=== PATIENT | female | born 1955 | race Caucasian/White ===

== ENCOUNTER → 2018-08-07 05:53 | Day surgery (SDC) | payer BC ==
[~2018-08-07 05:53] MED LIST: Acetaminophen TAB* 325 MG PO PRN; Buffered Lidocaine 1% SYRIN* 1 ML/SYRINGE INTRADERM ONE; Bupivacaine 0.5%* 50 ML VIAL ONE; DiMENhydriNATE IV* 50 MG/ML VIAL IV PUSH PRN; Famotidine IV* 10 MG/ML 2 ML (20 mg) IV ONE; Famotidine IV* 10 MG/ML 2 ML (20 mg) ONE; Ketorolac INJ* 30 MG/ML 1 ML VIAL IV PRN; Ketorolac INJ* 30 MG/ML 1 ML VIAL ONE; Lactated Ringers 1000 ML Bag* 1,000 ML IV SCH; Lidocaine 2% PF * 5 ML VIAL ONE; Lidocaine 2% PF* 10 ML AMP ONE; Midazolam* 1 MG/ML 2 ML VIAL (2 MG) ONE; Naloxone* 0.4 MG/ML 1 ML VIAL IV PRN; Ondansetron INJ* 2 MG/ML VIAL ONE; Propofol* 10 MG/ML 20 ML BTL ONE; ceFAZolin 2 GM PREMIX in ORs 2 GM/50 ML BAG IVPB ONE; fentaNYL* 50 MCG/ML 2 ML VIAL (100 MCG VIAL) ONE; oxyCODONE/Acetamin 5/325 MG* TAB ONE; oxyCODONE/Acetamin 5/325 MG* TAB PO PRN
[2018-08-07] MEDS: fentaNYL* 50 MCG/ML 2 ML VIAL (100 MCG VIAL) IV PRN ×2 (09:46→10:03)
[2018-08-07 12:02] VITALS: BP 143/85
--- NOTE | 2018-08-07 14:06 | OP ---
DATE OF OPERATION: 08/07/18 - SDS DATE OF : 53 ATTENDING SURGEON: Dr. Hans Lynn. CHARGER OPERATOR: Preeti Luther PA-C PRE-OP DIAGNOSIS: Right hallux valgus with valgus contracture, second metatarsophalangeal joint. POST-OP DIAGNOSIS: Right hallux valgus with valgus contracture second metatarsophalangeal joint. OPERATIVE PROCEDURE: Right hallux valgus repair with TightRope and second metatarsophalangeal joint release with pinning. DESCRIPTION OF PROCEDURE: The patient was taken to the operating room where a longitudinal incision was made in the first webspace dorsally. Through this incision, we released the capsule overlying the sesamoid laterally and released the adductor tendon. We also exposed the dorsolateral aspect of the second metatarsal shaft. Then through a straight medial incision over the medial eminence, we made a longitudinal capsulotomy through which we excised the medial eminence. We then passed the mini TightRope from the medial border of the first metatarsal to the second metatarsal midshaft with a clamp around the first and second metatarsal holding them tightly opposed. We tied down the TightRope. We then advanced the medial capsule with a 0 Vicryl suture and closed the medial wound with 3-0 Monocryl and 4-0 nylon. Through the first webspace incision, we released the lateral and dorsal capsule of the MTP joint. We then pinned this longitudinally with 0.062 C-wire. The wound was then closed with Vicryl and nylon sutures and a compression dressing applied. [id number]/[facility] #: [id number] [facility] HOSPITALJorge
== END | disposition home or self-care (01) ==
LOC: OR 05:53
PROVIDERS: ATTEND Orthopaedic Surgery
DX: M20.11 Hallux valgus (acquired), right foot (principal); E03.9 Hypothyroidism, unspecified; J45.909 Unspecified asthma, uncomplicated; F41.9 Anxiety disorder, unspecified
CPT/HCPCS: 76000; A9270-GY; C1713; C1776; J0690; J1885; J2001; J2250; J2405; J2704; J3010